=== PATIENT | male | born 1970 | race Caucasian/White ===

== ENCOUNTER 2019-01-15 22:22 | Emergency (ER) | payer SELFPAY ==
[2019-01-15] MEDS ORDERED: Ketorolac Tromethamine 60 MG/2 ML VIAL ONE (23:17)
--- NOTE | 2019-01-15 23:38 | ULT ---
US Venous Doppler Lt Unilat HISTORY: Left leg pain and swelling. COMPARISON: None. FINDINGS: Real-time color Doppler evaluation of the left lower extremity was performed from groin to calf. This includes evaluation the common femoral, superficial and profunda femoral, saphenous and posterior tibial veins. This shows a patent deep venous system with normal compressibility and augmen tation. IMPRESSION: No evidence of DVT of the left lower extremity.
[2019-01-16] MEDS ORDERED: predniSONE 20 MG TAB ONE (00:09)
== END 2019-01-16 00:16 | disposition home or self-care (01) ==
LOC: ERS 22:22
DX: M54.5 Low back pain (principal); M79.662 Pain in left lower leg
CPT/HCPCS: 96372; J1885; J7512

== ENCOUNTER 2019-01-17 13:04 | Emergency (ER) | payer OTHER, SELFPAY ==
[2019-01-17] MEDS ORDERED: Morphine 4 MG/ML VIAL ONE (14:10)
[2019-01-17] MEDS ORDERED: Morphine 2 MG/ML SYRINGE ONE (14:10)
--- NOTE | 2019-01-17 15:32 | RAD ---
LUMBAR SPINE: Three views. 01/17/19 HISTORY: Lumbar pain. No comparison. There is anterior wedge deformity of the L2 vertebra which is probably chronic. Anterior osteophytes at L1-2 and L2-3 would indicate chronic wedge compression. The other lumbar vertebrae maintain height and alignment. Mild loss of disc space at all levels of th e lumbar spine. Mild osteophytes are seen at the other levels and there is facet hypertrophy througho ut. IMPRESSION: Mild compression deformity of the L2 vertebra which is more pronounced laterally to the right with mi ld anterior and lateral wedging. There are bridging osteophytes at this level suggesting old stable c ompression injury. Other degenerative changes of the lumbar spine as described. POS: [facility]
== END 2019-01-17 15:01 | disposition home or self-care (01) ==
LOC: ERS 13:04
DX: M54.5 Low back pain (principal); M79.605 Pain in left leg
CPT/HCPCS: 72100; 96372; J2270

== ENCOUNTER 2019-04-21 08:01 | Emergency (ER) | payer OTHER | END 2019-04-21 09:40 | disposition home or self-care (01) | LOC: ERS 08:01 | DX: M54.2 Cervicalgia (principal); V89.2XXA Person injured in unspecified motor-vehicle accident, traffic, initial encounter | CPT/HCPCS: 99283 ==